=== PATIENT | female | born 1975 | race African-American/Black ===

== ENCOUNTER 2022-03-08 16:00 | Emergency (ER) | payer BC, SELFPAY ==
[2022-03-08 16:07] VITALS: BP 178/86; PULSE 66; RESP 16; TEMP 36.8; O2SAT 100
--- NOTE | 2022-03-08 16:53 | ED.GENADULT ---
HPI - General Adult General Chief complaint: Back Pain/Injury Stated complaint: pain on left tony Time Seen by Provider: 03/08/22 16:53 Source: patient Mode of arrival: ambulatory Limitations: no limitations History of Present Illness HPI narrative: 46-year-old female patient presents to the [facility] with complaints of left lateral pain x3 days. Denies any acute injury that she is aware of. Patient states she did get a mammogram this year and it was negative. Patient states it hurts worse when she moves her arm specifically with an abduction. Denies any recent viral illnesses. Denies chest pain or shortness of breath. Patient states she has been taking Tylenol for pain. Patient is on blood thinners is not able to take any NSAIDs. Denies using heat or ice to the area. Related Data Home Medications Medication Instructions Recorded Confirmed warfarin 10 mg tablet tablet 03/08/22 Allergies Allergy/AdvReac Type Severity Reaction Status Date / Time No Known Allergies Allergy Unverified 05/04/18 16:48 Review of Systems Review of Systems: CONSTITUTIONAL: Denies fever, chills, or sweats. EYES: Denies visual changes, redness, or discharge. ENT: Denies rhinorrhea, congestion, sore throat, or otalgia. CARDIOVASCULAR: Denies chest pain, palpitations, or edema. RESPIRATORY: Denies cough or dyspnea. GASTROINTESTINAL: Denies abdominal pain, nausea, vomiting, or diarrhea. GENITOURINARY: Denies dysuria or hematuria. SKIN: Denies rash or itching. MUSCULOSKELETAL: Denies back pain, joint pain, or myalgia. Positive left lateral chest pain NEUROLOGIC: Denies headache, numbness, or weakness. PSYCHIATRIC: Denies anxiety or depression. PMFSH Comments At the time of my signature I agree with nursing past medical history, surgical, social, and family history. There is no relevant family history pertinent to the presenting complaint. Exam Narrative: GENERAL: Well-appearing, well-nourished, and in no acute distress. HEAD: Normocephalic, atraumatic. EYES: PERRLA and EOMI. ENT: Nares clear, no rhinorrhea or epistaxis. Mucous membranes moist. NECK: Supple. No lymphadenopathy CHEST: Clear to auscultation. No respiratory distress. Patient has an obvious muscle spasm on palpitation to the lateral left chest under the axilla with tenderness noted. HEART: Regular rate and rhythm. No murmur heard. Normal peripheral pulses. ABDOMEN: Soft, nontender, nondistended, normal active bowel sounds. EXTREMITIES: Normal range of motion. No edema. SKIN: Warm, dry, no rash. NEURO: No focal deficits. Alert and oriented x3. Course Course Level of Care: Express Care Visit Vital Signs Vital signs: Vital Signs Temperature 36.8 C 03/08/22 16:07 Pulse Rate 66 03/08/22 16:07 Respiratory Rate 16 03/08/22 16:07 Blood Pressure 178/86 H 03/08/22 16:07 Pulse Oximetry 100 03/08/22 16:07 Oxygen Delivery Room Air 03/08/22 16:07 Temperature 36.8 C 03/08/22 16:07 Pulse Rate 66 03/08/22 16:07 Respiratory Rate 16 03/08/22 16:07 Blood Pressure 178/86 H 03/08/22 16:07 Pulse Oximetry 100 03/08/22 16:07 Oxygen Delivery Room Air 03/08/22 16:07 Vital signs reviewed. The patient has been informed that they may have pre-hypertension or Hypertension based on a BP reading in the department. I recommend that the patient call the primary care provider listed on their discharge instructions or a physician of their choice this week to arrange follow up for further evaluation of possible pre-hypertension or Hypertension Medical Decision Making MDM Narrative Medical decision making narrative: Discussed with patient that we will go ahead and discharge her home with some muscle relaxants to take with her Tylenol to see if this helps with the pain I would also suggest using ice and heat to the area to help see if this helps with the pain. Discussed with patient if she continues to have issues then she would need to follow-up with her gardenia
== END 2022-03-08 17:15 | disposition home or self-care (01) ==
PROVIDERS: Emergency Provider Nurse Practitioner Family
DX: M62.838 Other muscle spasm (principal); D68.61 Antiphospholipid syndrome
CPT/HCPCS: 99213; G0463